=== PATIENT | male | born 1960 | race Caucasian/White ===

== ENCOUNTER 2025-03-25 09:04 | Day surgery (SDC) | payer BC, SELFPAY ==
--- NOTE | 2025-03-12 07:12 | EXP.HP ---
History of Present Illness *Admission Date: 03/16/25 *Reason for visit:: Personal history of adenomatous colon polyps *History of present illness: Mr. Lagos is a 64-year-old gentleman who is here for follow-up screening/surveillance colonoscopy secondary to a personal history of adenomatous colon polyps. His colonoscopy in May 2008 was normal. His colonoscopy in June 2015 revealed 2 benign polyps (tubular adenomas x 2) which were removed. His last colonoscopy in March 2020 revealed 2 polyps (tubular adenomas x 2) which were removed. The patient does have eosinophilic esophagitis controlled with PPI therapy. 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 The examination is deemed medically necessary for screening/surveillance colonoscopy. The patient has been seen, interviewed and examined prior to the procedure by both myself and the anesthesia provider. [facility] Disclaimer: The information contained in this section may have been updated after the patient was seen, as this information can be updated by other users. Medical History Prostate cancer High blood cholesterol Heart disease Surgical History History of inguinal hernia repair, bilateral H/O prostatectomy Social History (Updated 05/20/24 @ 14:55 by Renee Negrete MA) Smoking Status: Never smoker alcohol intake: current current occupational status: employed Travel in the last 8 weeks?: None Review of Systems Review of Systems Review of systems (narrative): Negative *Cardiovascular Comments: Negative *Gastrointestinal Comments: Negative *Genitourinary Comments: Negative *Musculoskeletal Comments: Negative *Neurologic Comments: Negative Meds Home Medications and Allergies Home Medications ?Medication ?Instructions ?Recorded ?Confirmed ?Type alprazolam 0.5 mg tablet 0.5 mg PO BID 04/28/24 04/28/24 History atorvastatin 20 mg tablet 20 mg PO HS 04/28/24 04/28/24 History fluticasone propionate 50 2 inh inhalation BID 04/28/24 04/28/24 History mcg/actuation blister powder for inhalation loratadine-pseudoephedrine ER 10 1 tab PO DAILY 04/28/24 04/28/24 History mg-240 mg tablet,extended [id number] (Loratadine-D) oxybutynin chloride 5 mg tablet 5 mg PO DAILY 04/28/24 04/28/24 History pantoprazole 40 mg tablet,delayed 40 mg PO DAILY 04/28/24 04/28/24 History release sertraline 50 mg tablet 50 mg PO DAILY 04/28/24 04/28/24 History tadalafil 5 mg tablet 5 mg PO DAILY 04/28/24 04/28/24 History dupilumab 300 mg/2 mL subcutaneous 300 mg (2 mL) SQ WEEKLY 05/20/24 05/20/24 Rx syringe (Dupixent) Eosinophilic esophagitis #10 mL budesonide 2 mg/10 mL oral 10 ml PO BID #600 mL 08/01/24 08/01/24 Rx suspension in packet (Eohilia) fluticasone propionate 220 2 puff inhalation BID 30 days #12 08/01/24 08/01/24 Rx mcg/actuation HFA aerosol inhaler grams sodium,potassium,mag sulfates 17.5 See Rx Instructions PO .COMPLEX 03/02/25 Rx gram-3.13 gram-1.6 gram oral soln #354 mL (Suprep Bowel Prep Kit) New Prescriptions to Start Prescriptions: Allergies Allergy/AdvReac Type Severity Reaction Status Date / Time No Known Allergies Allergy Verified 05/20/24 14:54 Exam *Routine HEENT Exam Head: Present normocephalic Eye: Present EOMI and PERRL ENT: Present mucous membranes moist *Routine Neck Exam Neck: Present supple *Routine Respiratory Exam Respiratory: Present CTA bilaterally *Routine Cardiovascular Exam Cardiovascular: Present RRR *Routine Abdominal Exam Abdominal: Present soft and normoactive bowel sounds; Absent tenderness *Routine Rectal Exam Rectal:: deferred *Routine Genitalia Exam Genitalia:: deferred *Routine Extremities Exam Extremities: Absent cyanosis, clubbing or edema *Routine Skin Exam Skin: Present warm; Absent rash *Routine Neurological Exam Neurological: Present alert and oriented X3 Assessment and Plan *Assessment and plan (1) Personal history of adenomatous and serrated colon polyps: Status: Acute Category: Medical Code(s): Z86.0101 - Personal history of adenomatous and serrated colon polyps (2) Screening for colon cancer: Status: Acute Category: Medical Code(s): Z12.11 - Encounter for screening for malignant neoplasm of colon Plan A/P: 1. Personal history of adenomatous colon polyps is the preprocedural diagnosis. The patient will be anesthetized/sedated using MAC sedation. The patient has been seen and examined. Cardiac and lung assessment prior to the examination is stable. Proceed with planned screening/surveillance colonoscopy.
--- NOTE | 2025-03-22 11:44 | EXP.HP ---
History of Present Illness *Admission Date: 03/25/25 *History of present illness: Mr. Lagos is a 64-year-old gentleman who is here for follow-up screening/surveillance colonoscopy secondary to a personal history of adenomatous colon polyps. The patient's initial colonoscopy in May 2008 was normal. His colonoscopy in June 2015 revealed 2 polyps (benign tubular adenomas x 2) which were removed. His last colonoscopy with ms in March 2020 revealed 2 benign polyps (small tubular adenomas x 2) which were removed. The examination is deemed medically necessary for screening/surveillance colonoscopy. The patient has been seen, interviewed and examined prior to the procedure by both myself and the anesthesia provider. [facility] Disclaimer: The information contained in this section may have been updated after the patient was seen, as this information can be updated by other users. Medical History Sleep apnea treated with continuous positive airway pressure (CPAP) Prostate cancer High blood cholesterol Heart disease Surgical History History of inguinal hernia repair, bilateral H/O prostatectomy Family History Mother Heart disease Father Prostate cancer Lung cancer Brother Prostate cancer Lung cancer Social History (Updated 03/25/25 @ 10:00 by Judson Hewitt CRNA) Smoking Status: Never smoker alcohol intake: current substance use type: denies use current occupational status: employed Travel in the last 8 weeks?: None Have you lived/traveled outside [place] in past 30 days?: No Contact w/someone who lives/traveled outside [place] past 30 days?: No Exposure to someone with infectious disease in past 14 days?: No Do you have a fever (greater than 100.4 F or 38 C)?: No Have you tested positive for COVID-19?: No Exposed to someone with COVID-19 in past 14 days?: No Do you have a sore throat?: No Do you have a cough?: No Do you have any weakness?: No Are you experiencing any nausea/vomitting?: No Do you have any diarrhea?: No Are you experiencing any unusual bleeding?: No Do you have any muscle aches/pain?: No Do you have any abdominal pain?: No Are you experiencing loss of taste or smell?: No Review of Systems Review of Systems Review of systems (narrative): Negative *Cardiovascular Comments: Negative *Gastrointestinal Comments: Negative *Genitourinary Comments: Negative *Musculoskeletal Comments: Negative *Neurologic Comments: Negative Meds Home Medications and Allergies Home Medications ?Medication ?Instructions ?Recorded ?Confirmed ?Type alprazolam 0.5 mg tablet 0.5 mg PO BID PRN Anxiety 04/28/24 03/24/25 History atorvastatin 20 mg tablet (Lipitor) 20 mg PO HS 04/28/24 03/24/25 History pantoprazole 40 mg tablet,delayed 40 mg PO DAILY 04/28/24 03/24/25 History release sertraline 50 mg tablet (Zoloft) 50 mg PO DAILY 04/28/24 03/24/25 History tadalafil 5 mg tablet (Cialis) 5 mg PO DAILY 04/28/24 03/24/25 History sodium,potassium,mag sulfates 17.5 See Rx Instructions PO .COMPLEX 03/02/25 Rx gram-3.13 gram-1.6 gram oral soln #354 mL (Suprep Bowel Prep Kit) semaglutide (weight loss) 1 mg/0.5 1 mg SQ QOW 03/24/25 03/25/25 History mL subcutaneous pen injector New Prescriptions to Start Prescriptions: Allergies Allergy/AdvReac Type Severity Reaction Status Date / Time No Known Allergies Allergy Verified 03/24/25 08:29 Exam *Routine HEENT Exam Head: Present normocephalic Eye: Present EOMI and PERRL ENT: Present mucous membranes moist *Routine Neck Exam Neck: Present supple *Routine Respiratory Exam Respiratory: Present CTA bilaterally *Routine Cardiovascular Exam Cardiovascular: Present RRR *Routine Abdominal Exam Abdominal: Present soft and normoactive bowel sounds; Absent tenderness *Routine Rectal Exam Rectal:: deferred *Routine Genitalia Exam Genitalia:: deferred *Routine Extremities Exam Extremities: Absent cyanosis, clubbing or edema *Routine Skin Exam Skin: Present warm; Absent rash *Routine Neurological Exam Neurological: Present alert and oriented X3 Assessment and Plan *Assessment and plan (1) Personal history of adenomatous and serrated colon polyps: Status: Acute Category: Medical Code(s): Z86.0101 - Personal history of adenomatous and serrated colon polyps (2) Screening for colon cancer: Status: Acute Category: Medical Code(s): Z12.11 - Encounter for screening for malignant neoplasm of colon Plan A/P: 1. Personal history of adenomatous colon polyps is the preprocedural diagnosis. The patient will be anesthetized/sedated using MAC sedation. The patient has been seen and examined. Cardiac and lung assessment prior to the examination is stable. Proceed with planned screening colonoscopy.
[2025-03-24 08:42] VITALS: BMI 26.6
--- NOTE | 2025-03-25 07:14 | P.PCN_ITS ---
[facility] Procedure Note Date: 03/25/25 Time: 11:14 Procedure Note:: Colonoscopy Procedure Report: Colonoscopy with cold snare polypectomy Endoscopist: Bernard Dupont II, MD Referring physician: Michelle Matt MD, [address] [place] [id number] Date of Procedure: March 25, 2025 Equipment: Olympus [id number] adult colonoscope Sedation: MAC sedation Indication: Mr. Lagos is a 64-year-old gentleman who is here for follow-up screening/surveillance colonoscopy secondary to a personal history of adenomatous colon polyps. The patient's initial colonoscopy in May 2008 was normal. His colonoscopy in June 2015 revealed 2 polyps (benign tubular adenomas x 2) which were removed. His last colonoscopy with me in March 2020 revealed 2 benign polyps (small tubular adenomas x 2) which were removed. The patient reports no abdominal pain, weight loss, change in his bowel habits or rectal bleeding. He reports no family history of colon cancer. He does have a personal history of prostate cancer and family history of prostate cancer. Procedure: Prior to the procedure, a history and physical exam was performed, and patient's medications and allergies were reviewed. The risks, benefits and alternatives of the sedation and procedure were discussed with the patient. All questions were answered and informed consent was obtained. The patient was brought to the procedure room. Patient identification and proposed procedure were verified by the physician and the nurse. The patient was placed in a left lateral decubitus position and the scope was passed under direct vision. Throughout the procedure, the patient's blood pressure, pulse, and oxygen saturations were monitored continuously. The colonoscopy was accomplished without difficulty. The patient tolerated the procedure well. Findings: On digital rectal examination there was normal rectal tone. There were no external hemorrhoids. The colonoscope was introduced through the anal canal to the rectum and advanced to the cecum. The ileocecal valve and appendiceal orifice were identified. The scope was advanced a short distance into the ileum which appeared grossly normal. The scope was then withdrawn into the colon. The cecum was normal. There was a diminutive 3 to 4 mm polyp in the ascending colon removed via cold snare polypectomy. The remainder of the ascending, transverse and descending colon were normal. There was a few shallow diverticuli in the sigmoid colon. The rectum was normal and there were no other mucosal abnormalities. Upon retroflexion within the rectum there were grade 2 internal hemorrhoids. The preparation was excellent throughout with Goldonna Preparation Score of 9. The cecal time was 12 minutes. Impression: 1. Diminutive 3 to 4 mm ascending colon polyp 2. Mild sigmoid diverticulosis 3. Grade 2 internal hemorrhoids Plan: I will follow-up the polyp histology and recommend repeat screening/surveillance colonoscopy again in 7 years. I would recommend psyllium bulking fiber supplementation (Konsyl) on a regular and daily basis.
[2025-03-25 09:18] VITALS: BP 152/72; PULSE 75; RESP 18; TEMP 36.6; O2SAT 94; BMI 26.6
[2025-03-25] MEDS: LACTATED RINGERS 1000ML 1,000 ML 50 ML IV (09:34)
--- NOTE | 2025-03-25 09:59 | P.PNANES_ITS ---
[facility] Disclaimer: The information contained in this section may have been updated after the patient was seen, as this information can be updated by other users. Medical History Sleep apnea treated with continuous positive airway pressure (CPAP) Prostate cancer High blood cholesterol Heart disease Surgical History History of inguinal hernia repair, bilateral H/O prostatectomy Family History Mother Heart disease Father Prostate cancer Lung cancer Brother Prostate cancer Lung cancer Social History (Updated 03/25/25 @ 09:20 by Faye Villafuerte RN) Smoking Status: Never smoker alcohol intake: current substance use type: denies use current occupational status: employed Travel in the last 8 weeks?: None [facility] Anesthesia Checklist Patient Identification Patient Identification: Arm Band Structural Data Admitted From: Home Planned Operative Procedure/s: Colonoscopy Consent for Planned Operative Procedure(s) Verified: Yes Verified Documents: Surgical Consent and History and Physical NPO Status Verified Time NPO: 00:00 Additional verifications Anesthesia Reactions: No Airway Assessment Mallampati Score:: Class II C-Spine Mobility Assessed: Yes TMJ Mobility Assessed: Yes Dentition: Good Dentition Neurological Assessment Level of Consciousness: Awake, Alert and Appropriate Anesthesia Plan Anesthesia Risk discussed: Yes Anesthesia Plan: Verified ASA Class: II Anesthesia Type: MAC
[2025-03-25 11:16] VITALS: BP 127/71; PULSE 80; RESP 14; TEMP 36.2; O2SAT 95
[2025-03-25 11:26] VITALS: BP 126/70; PULSE 76; O2SAT 96
[2025-03-25 11:36] VITALS: BP 151/73; PULSE 70; O2SAT 96
[2025-03-25 11:46] VITALS: BP 152/76; PULSE 77; RESP 16; O2SAT 96
== END 2025-03-25 11:46 | disposition home or self-care (01) ==
PROVIDERS: Visit Provider Internal Medicine Gastroenterology
PROC: 0DJD8ZZ Inspection of Lower Intestinal Tract, Via Natural or Artificial Opening Endoscopic (ICD-10-PCS; CPT 45378; principal; 2025-03-16 10:00)
DX: Z12.11 Encounter for screening for malignant neoplasm of colon (principal); D12.2 Benign neoplasm of ascending colon; K57.30 Diverticulosis of large intestine without perforation or abscess without bleeding; K64.1 Second degree hemorrhoids; E78.00 Pure hypercholesterolemia, unspecified; Z86.0101 Personal history of adenomatous and serrated colon polyps
CPT/HCPCS: 45385; J2003; J2704; J7120